=== PATIENT | male | born 1995 | race Two or more races ===

== ENCOUNTER → 2017-02-21 08:50 | Emergency (ER) | payer SELFPAY ==
[~2017-02-21 08:50] MED LIST: Famotidine IV* 10 MG/ML 2 ML (20 mg) IV ONE; NS 0.9% 1000 ML* 1,000 ML IV ONE; Ondansetron INJ* 2 MG/ML VIAL IV ONE; Ondansetron INJ* 2 MG/ML VIAL ONE; Polyethylene Glycol 3350* 17 GM PACKET PO PRN
[2017-02-21 09:26] LABS: Hematocrit 46 % (42-52); Hemoglobin 15.7 g/dl (14.0-18.0); Mean Corpuscular HGB Conc 34 g/dl (31-36); Mean Corpuscular Hemoglobin 28 pg (27-31); Mean Corpuscular Volume 83 fL (80-94); Mean Platelet Volume 10 um3 (7.4-10.4); Red Blood Count 5.62 10^6/ul (4.0-5.4); Red Cell Distribution Width 13 % (10.5-15); White Blood Count 7.8 10^3/ul (3.5-10.8)
--- NOTE | 2017-02-21 09:28 | RAD ---
HISTORY: Retrosternal and epigastric pain COMPARISONS: None VIEWS: 1: frontal portable view of the chest at 9:05 AM FINDINGS: LINES AND TUBES: None. CARDIOMEDIASTINAL SILHOUETTE: The cardiomediastinal silhouette is normal for portable technique. PLEURA: The costophrenic angles are sharp. No pleural abnormalities are noted. LUNG PARENCHYMA: The lungs are clear. ABDOMEN: The upper abdomen is clear. There is no subphrenic gas. BONES AND SOFT TISSUES: No bone or soft tissue abnormalities are noted. IMPRESSION: NO ACTIVE CARDIOPULMONARY DISEASE.
[2017-02-21 09:38] LABS: ALT 58 U/L (7-52); AST 28 U/L (13-39); Albumin 4.3 g/dL (3.2-5.2); Alkaline Phosphatase 116 U/L (34-104); Amylase 30 U/L (29-103); Anion Gap 6 mmol/L (2-11); BUN/Creatinine Ratio 15.6 (8-20); Blood Urea Nitrogen 12 mg/dL (6-24); C Reactive Protein 4.37 mg/L (< 5.00); CO2 Carbon Dioxide 28 mmol/L (22-32); Calcium 9.6 mg/dL (8.6-10.3); Chloride 102 mmol/L (101-111); EGFR African American 165.6 (>60); EGFR Non-African American 128.8 (>60); Globulin 3.2 g/dL (2-4); Glucose 112 mg/dL (70-100); Lipase < 10 U/L (11.0-82.0); Potassium 3.9 mmol/L (3.5-5.0); Sodium 136 mmol/L (133-145); Total Protein 7.5 g/dL (6.4-8.9)
--- NOTE | 2017-02-21 09:51 | RAD ---
HISTORY: Right upper quadrant pain. COMPARISONS: None TECHNIQUE: Multiple transverse and longitudinal ultrasound images were obtained of the right upper quadrant. FINDINGS: LIVER: The liver is top normal in maximal dimension measuring up to 19.8 cm. The liver exhibits mildly increased homogenous echogenicity without focal masses or surface irregularity. Normal hepatic and portal venous blood flow is duplicated with color flow imaging. There is no gross intrahepatic biliary duct dilatation. GALLBLADDER AND EXTRAHEPATIC BILIARY DUCT: The gallbladder is normal in appearance without intraluminal stones or other soft tissue masses. There is no pericholecystic fluid or gallbladder wall thickening. The common bile duct measures a maximum diameter of 2 mm. PANCREAS: The portions of the pancreas not obscured by bowel gas are normal in appearance. RIGHT KIDNEY: The right kidney is normal in size, morphology and echogenicity. AORTA AND IVC: The visualized portions are normal in appearance and not pathologically dilated. IMPRESSION: IN THE CORRECT CLINICAL SETTING THE SONOGRAPHIC FINDINGS COULD BE SEEN IN THE SETTING OF HEPATIC STEATOSIS OR OTHER CHRONIC INFILTRATIVE DISEASE OF THE LIVER. OTHERWISE THERE ARE NO ACUTE ABNORMALITIES.
--- NOTE | 2017-02-21 10:52 | RAD ---
HISTORY: Abdominal pain COMPARISONS: None VIEWS: Frontal supine and upright views of the abdomen. FINDINGS: BOWEL: There is a nonobstructive bowel gas pattern. There is a large amount of stool within the colon. CALCULI: There are no abnormal calculi. BONES AND SOFT TISSUES: There are no osseous abnormalities. OTHER FINDINGS: The lung bases are clear. There is no subphrenic gas. IMPRESSION: NONOBSTRUCTIVE BOWEL GAS PATTERN. LARGE AMOUNT OF STOOL THROUGHOUT THE COLON.
[2017-02-21 11:35] VITALS: BP 141/69
--- NOTE | 2017-02-22 07:20 | ED ---
Becky Lindo Alfonso, scribed for Osei Freitas MD on 02/21/17 at 0943 . HPI Chest Pain - HPI Summary HPI Summary: This patient is a 21 year old M BIBA to [facility] with a chief complaint of CP and upper abdominal pain since this morning. The CP does not radiate. The CC is described as a pressure. The patient rates the pain 6/10 in severity. Symptoms aggravated by nothing. Symptoms alleviated by nothing. Patient reports nausea, vomiting, SOB, and loss of appetite (last ate at 1800 yesterday and drank water at 0730 this morning). Patient denies reflux. PMHx includes anxiety and HTN. - History of Current Complaint Chief Complaint: EDChestPainROMI Time Seen by Provider: 02/21/17 08:54 Hx Obtained From: Patient Onset/Duration: Started Hours Ago, Still Present Timing: Constant Initial Severity: Moderate Pain Intensity: 6 Pain Scale Used: 0-10 Numeric Chest Pain Radiates: No Character: Pressure/Squeezing Aggravating Factor(s): Nothing Alleviating Factor(s): Nothing Associated Signs and Symptoms: Positive: Other: - nausea, vomiting, SOB, and loss of appetite (last ate at 1800 yesterday and drank water at 0730 this morning). Patient denies reflux. - Allergy/Home Medications Allergies/Adverse Reactions: Allergies Allergy/AdvReac Type Severity Reaction Status Date / Time No Known Allergies Allergy Verified 02/21/17 09:14 PMH/Surg Hx/FS Hx/Imm Hx Cardiovascular History: Reports: Hx Hypertension Opthamlomology History: Denies: Hx Legally Blind EENT History: Denies: Hx Deafness Psychiatric History: Reports: Hx Anxiety Infectious Disease History: No Infectious Disease History: Denies: Traveled Outside the [place] in Last 30 Days - Family History Known Family History: Positive: Cardiac Disease, Other - Cancer - Social History Alcohol Use: Occasionally Substance Use Type: Reports: None Smoking Status (MU): Never Smoked Tobacco Review of Systems Negative: Fever Positive: Chest Pain Negative: Shortness Of Breath Positive: Abdominal Pain - upper, Other - loss of appetite; negative reflux.. Negative: Vomiting, Nausea All Other Systems Reviewed And Are Negative: Yes Physical Exam - Summary Physical Exam Summary: VITAL SIGNS: Reviewed. GENERAL: Patient is a well-developed and obese male who is lying comfortable in the stretcher. Patient is not in any acute respiratory distress. HEAD AND FACE: No signs of trauma. No ecchymosis, hematomas or skull depressions. No sinus tenderness. EYES: PERRLA, EOMI x 2, No injected conjunctiva, no nystagmus. EARS: Hearing grossly intact. Ear canals and tympanic membranes are within normal limits. MOUTH: Oropharynx within normal limits. NECK: Supple, trachea is midline, no adenopathy, no JVD, no carotid bruit, no c- spine tenderness, neck with full ROM. CHEST: Symmetric. Reproducible left and retrosternal area CP. LUNGS: Clear to auscultation bilaterally. No wheezing or crackles. CVS: Regular rate and rhythm, S1 and S2 present, no murmurs or gallops appreciated. ABDOMEN: Epigastric and RUQ tenderness. Soft. No signs of distention. No rebound no guarding, and no masses palpated. Bowel sounds are normal. EXTREMITIES: FROM in all major joints, no edema, no cyanosis or clubbing. NEURO: Alert and oriented x 3. No acute neurological deficits. Speech is normal and follows commands. SKIN: Dry and warm Triage Information Reviewed: Yes Vital Signs On Initial Exam: Initial Vitals Temp Pulse Resp BP Pulse Ox 98.9 F 99 13 165/102 99 02/21/17 08:58 02/21/17 08:58 02/21/17 08:58 02/21/17 08:58 02/21/17 08:58 Vital Signs Reviewed: Yes - Genesis Coma Scale Coma Scale Total: 15 Diagnostics - Vital Signs Vital Signs Temp Pulse Resp BP Pulse Ox 02/21/17 08:58 98.9 F 99 13 165/102 99 - Laboratory Lab Results: Lab Results 02/21/17 02/21/17 Range/Units 09:10 09:10 WBC 7.8 (3.5-10.8) 10^3/ul RBC 5.62 H (4.0-5.4) 10^6/ul Hgb 15.7 (14.0-18.0) g/dl Hct 46 (42-52) % MCV 83 (80-94) fL MCH 28 (27-31) pg MCHC 34 (31-36) g/dl RDW 13 (10.5-15) % Plt Count 223 (150-450) 10^3/ul MPV 10 (7.4-10.4) um3 Neut % (Auto) 68.3 (38-83) % Lymph % (Auto) 22.0 L (25-47) % [place] % (Auto) 8.1 (1-9) % Eos % (Auto) 1.4 (0-6) % Baso % (Auto) 0.2 (0-2) % Absolute Neuts (auto) 5.3 (1.5-7.7) 10^3/ul Absolute Lymphs (auto) 1.7 (1.0-4.8) 10^3/ul Absolute Monos (auto) 0.6 (0-0.8) 10^3/ul Absolute Eos (auto) 0.1 (0-0.6) 10^3/ul Absolute Basos (auto) 0 (0-0.2) 10^3/ul Absolute Nucleated RBC 0.01 10^3/ul Nucleated RBC % 0.1 Sodium 136 (133-145) mmol/L Potassium 3.9 (3.5-5.0) mmol/L Chloride 102 (101-111) mmol/L Carbon Dioxide 28 (22-32) mmol/L Anion Gap 6 (2-11) mmol/L BUN 12 (6-24) mg/dL Creatinine 0.77 (0.67-1.17) mg/dL Est GFR ( Amer) 165.6 (>60) Est GFR (Non-Af Amer) 128.8 (>60) BUN/Creatinine Ratio 15.6 (8-20) Glucose 112 H (70-100) mg/dL Calcium 9.6 (8.6-10.3) mg/dL Total Bilirubin 0.40 (0.2-1.0) mg/dL AST 28 (13-39) U/L ALT 58 H (7-52) U/L Alkaline Phosphatase 116 H (34-104) U/L C-Reactive Protein 4.37 (< 5.00) mg/L Total Protein 7.5 (6.4-8.9) g/dL Albumin 4.3 (3.2-5.2) g/dL Globulin 3.2 (2-4) g/dL Albumin/Globulin Ratio 1.3 (1-3) Amylase 30 (29-103) U/L Lipase < 10 L (11.0-82.0) U/L Result Diagrams: 02/21/17 09:10 02/21/17 09:10 Lab Statement: Any lab studies that have been ordered have been reviewed, and results considered in the medical decision making process. - Radiology CXR Radiology Interpretation Completed By: Radiologist - NO ACTIVE CARDIOPULMONARY DISEASE. ED physician has reviewed this radiology report and agrees. Abdomen X-Ray Radiology Interpretation Completed By: Radiologist - NONOBSTRUCTIVE BOWEL GAS PATTERN. LARGE AMOUNT OF STOOL THROUGHOUT THE COLON. ED physician has reviewed this radiology report and agrees. - EKG 0952 Cardiac Rate: NL - BPM 69 EKG Rhythm: Sinus Rhythm EKG Interpretation: Normal axis. No ST elevation - Additional Comments Diagnostic Additional Comments: Gallbladder US reveals, per radiologist, IN THE CORRECT CLINICAL SETTING THE SONOGRAPHIC FINDINGS COULD BE SEEN IN THE SETTING OF HEPATIC STEATOSIS OR OTHER CHRONIC INFILTRATIVE DISEASE OF THE LIVER. OTHERWISE THERE ARE NO ACUTE ABNORMALITIES. ED physician has reviewed this radiology report and agrees. Chest Pain Course/Dx - Course Assessment/Plan: This patient is a 21 year old M BIBA to [facility] with a chief complaint of CP and upper abdominal pain since this morning. The CP does not radiate. The CC is described as a pressure. The patient rates the pain 6/10 in severity. Symptoms aggravated by nothing. Symptoms alleviated by nothing. Patient reports nausea, vomiting, SOB, and loss of appetite (last ate at 1800 yesterday and drank water at 0730 this morning). Patient denies reflux. PMHx includes anxiety and HTN. Test results with no significant abnormalities. An EKG reveals NSR. CXR reveals NO ACTIVE CARDIOPULMONARY DISEASE. ED physician has reviewed this radiology report and agrees. Gallbladder US reveals, per radiologist, IN THE CORRECT CLINICAL SETTING THE SONOGRAPHIC FINDINGS COULD BE SEEN IN THE SETTING OF HEPATIC STEATOSIS OR OTHER CHRONIC INFILTRATIVE DISEASE OF THE LIVER. OTHERWISE THERE ARE NO ACUTE ABNORMALITIES. ED physician has reviewed this radiology report and agrees. Abdomen X-Ray reveals, NONOBSTRUCTIVE BOWEL GAS PATTERN. LARGE AMOUNT OF STOOL THROUGHOUT THE COLON. ED physician has reviewed this radiology report and agrees. I believe the patients symptoms are secondary to constipation. Symptoms were improved with Zofran and IV fluids. At this point the patient was given Miralax. At this point he was able to tolerate PO without N/V. He was asked to change his diet, and possibly add vegetables, to decrease his constipation. He will be discharged home with prescriptions for Zofran and Miralax and PCP follow up. The patient is agreeable with this plan. The patient is hemodynamically stable, alert and oriented x3. - Diagnoses Provider Diagnoses: Nausea & vomiting, Constipation Discharge - Discharge Plan Condition: Stable Disposition: HOME Prescriptions: Ondansetron ODT TAB* [Zofran 4 MG Odt TAB*] 4 mg PO Q6H PRN #10 tab.odt PRN Reason: Vomiting Polyethylene Glycol 3350* [Miralax*] 17 gm PO DAILY #12 packet Patient Education Materials: Constipation (ED), Acute Nausea and Vomiting (ED) Forms: *Work Release [facility] - 3 Days Additional Instructions: RETURN TO THE EMERGENCY DEPARTMENT FOR CHANGING OR WORSENING SYMPTOMS. The documentation as recorded by the Becky mccarthy Alfonso accurately reflects the service I personally performed and the decisions made by Fortino fish Walter, MD.
== END | disposition home or self-care (01) ==
LOC: ED 08:50
DX: R11.2 Nausea with vomiting, unspecified (principal); R63.0 Anorexia; K59.00 Constipation, unspecified
CPT/HCPCS: 36415; 71010; 74020; 76705; 80053; 82150; 83690; 85025; 86140; 93005; 99283; A9270-GY; J2405

== ENCOUNTER 2017-09-23 01:34 | Emergency (ER) | payer BC ==
[2017-09-23] MEDS ORDERED: Famotidine TAB* 20 MG PO ONE (03:40)
[2017-09-23] MEDS ORDERED: Al Hydrox/Mg Hydrox/Simet LIQ* 30 ML UDC PO ONE (03:40)
[2017-09-23] MEDS ORDERED: Lidocaine 2% VISCOUS* 15 ML UDC PO ONE (03:40)
[2017-09-23 04:27] VITALS: BP 147/84
--- NOTE | 2017-09-23 05:23 | ED ---
Shantell Lindo Rebecca, scribed for Nicolas Tilley MD on 09/23/17 at 0258 . HPI Chest Pain - HPI Summary HPI Summary: Pt is a 22 y/o M who presents to ED c/o CP. Pain has been intermittent throughout this week, about 3-4 episodes. Pain is in the left anterior region with radiation to the left arm. On triage, pain was 7/10 and it has been waxing and waning. Sx unchanged by deep breaths. Additionally c/o cough (a month), palpitations (intermittently for a week). Denies edema, calf pain. Drove 4 hours a few weeks ago. PMHx HTN (is not on medication). No FHx PE, DVT. - History of Current Complaint Chief Complaint: EDChestPainROMI Time Seen by Provider: 09/23/17 02:56 Hx Obtained From: Patient Onset/Duration: Started Weeks Ago - 1 week, Still Present Timing: Intermittent Current Severity: Moderate Pain Intensity: 7 Pain Scale Used: 0-10 Numeric Chest Pain Location: Left Anterior Chest Pain Radiates: Yes Chest Pain Radiates To:: Arm - Left Associated Signs and Symptoms: Positive: Palpitations. Negative: Calf Pain/ Swelling - Allergy/Home Medications Allergies/Adverse Reactions: Allergies Allergy/AdvReac Type Severity Reaction Status Date / Time No Known Allergies Allergy Verified 02/21/17 09:14 PMH/Surg Hx/FS Hx/Imm Hx Cardiovascular History: Reports: Hx Hypertension Sensory History: Denies: Hx Legally Blind, Hx Deafness Opthamlomology History: Denies: Hx Legally Blind Psychiatric History: Reports: Hx Anxiety Infectious Disease History: No Infectious Disease History: Denies: Traveled Outside the [place] in Last 30 Days - Family History Known Family History: Positive: Cardiac Disease, Other - Cancer - Social History Alcohol Use: Occasionally Substance Use Type: Reports: None Smoking Status (MU): Never Smoked Tobacco Review of Systems Positive: Palpitations, Chest Pain Positive: Cough Positive: Other - NEGATIVE: Calf pain. Negative: Edema All Other Systems Reviewed And Are Negative: Yes Physical Exam - Summary Physical Exam Summary: Appearance: Well appearing, no pain distress Skin: warm, dry, reflects adequate perfusion Head/face: normal Eyes: EOMI, JENNIFER ENT: normal Neck: supple, non-tender Respiratory: CTA, breath sounds present Cardiovascular: RRR, pulses symmetrical, no pain with palpation, goos strong pulses, no ectopy noted on the monitor Abdomen: non-tender, soft Bowel Sounds: present Musculoskeletal: normal, strength/ROM intact Neuro: normal, sensory motor intact, A&Ox3 Triage Information Reviewed: Yes Vital Signs On Initial Exam: Initial Vitals Temp Pulse Resp BP Pulse Ox 98.1 F 87 20 149/87 100 09/23/17 01:35 09/23/17 01:35 09/23/17 01:35 09/23/17 01:35 09/23/17 01:35 Vital Signs Reviewed: Yes Diagnostics - Vital Signs Vital Signs Temp Pulse Resp BP Pulse Ox 09/23/17 02:53 93 164/82 99 09/23/17 01:35 98.1 F 87 20 149/87 100 - Laboratory Lab Statement: Any lab studies that have been ordered have been reviewed, and results considered in the medical decision making process. - Radiology CXR Xray Interpretation: No Acute Changes Radiology Interpretation Completed By: ED Physician - EKG 0305 Cardiac Rate: NL - 88 bpm EKG Rhythm: Sinus Rhythm ST Segment: Normal EKG Interpretation: Normal axis. Normal interval. Normal ST. Re-Evaluation - Re-Evaluation First Eval Re-Evaluation Time: 04:16 Change: Improved Comment: GI meds improved his pain. Chest Pain Course/Dx - Course Assessment/Plan: Pt is a 22 y/o M who presents to ED c/o intermittent left anterior chest pain for 1 week (3-4 episodes) with occasional radiation to the left arm. Sx unchanged by deep breaths. Additionally c/o cough (a month), palpitations (intermittently for a week). Denies edema, calf pain. Drove 4 hours a few weeks ago. PMHx HTN (is not on medication). No FHx PE, DVT. EKG is sinus rhythm with no acute findings. CXR reveals no acute findings. HEART score of 0, PERC rule applies, Wells' criteria 0. In the ED course, pt received Maalox , Xylocaine, and Pepcid which alleviated symptoms. Pt will be D/C to home with Dx of atypical chest pain and esophagitis with Rx for Pepcid. - Chest Pain Differential Diagnosis/HQI/PQRI: Acute MN, ACS, GI Disease, Lower Respiratory Infection, Pulmonary Embolism - Diagnoses Provider Diagnoses: Atypical chest pain, Esophagitis Discharge - Sign-Out/Discharge Documenting (check all that apply): Discharge/Admit/Transfer - Discharge - Discharge Plan Condition: Good Disposition: HOME Prescriptions: Famotidine TAB* [Pepcid 20 MG TAB*] 20 mg PO BID #20 tab Patient Education Materials: Chest Pain (ED), Esophagitis (ED) Referrals: [facility] [Primary Care Provider] - Additional Instructions: Avoid spicy foods, anti-inflammatory medications, alcohol. Return with increased chest pain, difficulty breathing, fevers, worse or other concerns as discussed. Call the [facility] in the morning for follow-up appointment. - Billing Disposition and Condition Condition: GOOD Disposition: HOME The documentation as recorded by the Shantell mccarthy Rebecca accurately reflects the service I personally performed and the decisions made by me, Nicolas Tilley MD.
--- NOTE | 2017-09-23 07:59 | RAD ---
INDICATION: Chest pain. COMPARISON: Comparison is made with a prior study from February 21, 2017. TECHNIQUE: Dual-energy PA and lateral views of the chest were obtained. FINDINGS: The heart is within normal limits in size. Mediastinal and hilar contours appear within normal limits. The lungs are clear. No pleural effusion or pneumothorax is seen. IMPRESSION: NO EVIDENCE FOR ACTIVE CARDIOPULMONARY DISEASE.
== END 2017-09-23 04:27 | disposition home or self-care (01) ==
LOC: ED 01:34
DX: R07.89 Other chest pain (principal); K20.9 Esophagitis, unspecified; I10 Essential (primary) hypertension; F41.9 Anxiety disorder, unspecified
CPT/HCPCS: 71046; 93005; 99283; A9270-GY